=== PATIENT | male | born 1955 | race Caucasian/White ===

== ENCOUNTER 2017-10-22 02:54 | Emergency (ER) | payer OTHER | END 2017-10-22 03:32 | disposition home or self-care (01) | LOC: D.ER 02:54 | DX: S05.01XA Injury of conjunctiva and corneal abrasion without foreign body, right eye, initial encounter (principal); X58.XXXA Exposure to other specified factors, initial encounter; Y93.89 Activity, other specified; Y92.029 Unspecified place in mobile home as the place of occurrence of the external cause; I10 Essential (primary) hypertension ==

== ENCOUNTER 2018-03-20 22:19 | Emergency (ER) | payer OTHER ==
[2018-03-20 23:18] LABS: BASOPHILS 0.1 % (0-2); HEMATOCRIT 39.6 % (42.0-54.0); HEMOGLOBIN 14.5 g/dL (13.5-17.5); IMMATURE GRANULOCYTES 0.6 % (0-5); LYMPHOCYTES 32.8 % (15-50); MCH 33.2 pg (26.0-34.0); MCHC 36.6 g/dL (31.0-37.0); MCV 90.6 fL (80.0-100.0); MEAN PLATELET VOLUME 8.2 fL (7.4-10.4); NEUTROPHILS 55.5 % (40-80); PLATELET COUNT 282 10x3/uL (130-400); RBC 4.37 10x6/uL (4.20-6.10); RDW 12.6 % (11.5-14.5); WBC 8.5 10x3/uL (4.8-10.8)
[2018-03-20 23:56] LABS: ALBUMIN 3.8 g/dL (3.4-5.0); ALKALINE PHOSPHATASE 81 U/L (46-116); ALT (SGPT) 107 U/L (10-68); BILIRUBIN - TOTAL 0.29 mg/dL (0.2-1.3); CALC OSMOLALITY 246 mosm/kg (275-300); CALCIUM 8.5 mg/dL (8.5-10.1); CARBON DIOXIDE 28.3 mmol/L (21.0-32.0); CKMB 6.7 U/L (0.0-3.6); CREATINE KINASE 204 UL (21-232); GLUCOSE 90 mg/dL (74-106); POTASSIUM - SERUM 3.6 mmol/L (3.5-5.1); PROTEIN - SERUM 8.6 g/dL (6.4-8.2); SODIUM 123 mmol/L (136-145); UREA NITROGEN 10 mg/dL (7-18); eGFR NON AFRICAN AMERICAN 81 mL/min (90-120)
[2018-03-21 00:02] LABS: LIPASE 129 U/L (73-393); PRO BNP 40 pg/mL (0-125)
[2018-03-21 00:04] LABS: CHLORIDE - SERUM 85 mmol/L (98-107); TROPONIN-I < 0.017 ng/mL (0.000-0.060)
== END 2018-03-21 00:30 | disposition home or self-care (01) ==
LOC: D.ER 22:19
PROVIDERS: Family Medicine
DX: R07.89 Other chest pain (principal); I10 Essential (primary) hypertension

== ENCOUNTER 2020-05-25 20:02 | Emergency (ER) | payer OTHER ==
[~2020-05-25] VITALS: Ht 180.3 cm; Wt 77.1 kg
[2020-05-25 20:19] VITALS: Ht 180.3 cm; Wt 77.1 kg
[2020-05-25] MEDS ORDERED: REQUIP3 MG PO (20:20)
[2020-05-25] MEDS ORDERED: LISINOPRIL40 MG PO (20:20)
[2020-05-25] MEDS ORDERED: ANORO ELLIPTA1 EACH INH (20:21)
[2020-05-25] MEDS ORDERED: PROAIR HFA8.5 G1 INH (20:21)
[2020-05-25 20:34] LABS: BASOPHILS 0.6 % (0-2); EOSINOPHILS 15.8 % (0-7); HEMATOCRIT 43.8 % (42.0-54.0); HEMOGLOBIN 14.8 g/dL (13.5-17.5); IMMATURE GRANULOCYTES 2.8 % (0-5); MCHC 33.8 g/dL (31.0-37.0); MCV 91.6 fL (80.0-100.0); MEAN PLATELET VOLUME 8.6 fL (7.4-10.4); MONOCYTES 13.2 % (2-11); NEUTROPHILS 39.6 % (40-80); RBC 4.78 10x6/uL (4.20-6.10); RDW 12.5 % (11.5-14.5); WBC 5.4 10x3/uL (4.8-10.8)
[2020-05-25 20:35] LABS: PLATELET COUNT 221 10x3/uL (130-400)
[2020-05-25 20:45] LABS: CALC OSMOLALITY 249 mosm/kg (275-300); CALCIUM 9.2 mg/dL (8.5-10.1); CHLORIDE - SERUM 94 mmol/L (98-107); CREATININE - SERUM 0.8 mg/dL (0.6-1.3); GLUCOSE 92 mg/dL (74-106); POTASSIUM - SERUM 4.3 mmol/L (3.5-5.1); SODIUM 125 mmol/L (136-145); UREA NITROGEN 6 mg/dL (7-18); eGFR NON AFRICAN AMERICAN > 90 mL/min (90-120)
[2020-05-25 20:53] LABS: ALBUMIN 3.8 g/dL (3.4-5.0); ALKALINE PHOSPHATASE 66 U/L (30-120); ALT (SGPT) 83 U/L (10-68); AMYLASE - SERUM 183 U/L (25-115); BILIRUBIN - TOTAL 0.46 mg/dL (0.2-1.3); LIPASE 127 U/L (73-393); TROPONIN-I < 0.017 ng/mL (0.000-0.060)
[2020-05-25 21:04] LABS: BILIRUBIN NEGATIVE (NEGATIVE); GLUCOSE NEGATIVE (NEGATIVE); KETONE NEGATIVE (NEGATIVE); NITRITE NEGATIVE (NEGATIVE); SPECIFIC GRAVITY 1.005 (1.005-1.020); UROBILINOGEN NORMAL (NORMAL)
[2020-05-25 22:59] VITALS: BP 165/107
== END 2020-05-25 23:01 | disposition home or self-care (01) ==
LOC: D.ER 20:02
PROVIDERS: Family Medicine
DX: R10.31 Right lower quadrant pain (principal); R79.89 Other specified abnormal findings of blood chemistry; E87.8 Other disorders of electrolyte and fluid balance, not elsewhere classified; E87.1 Hypo-osmolality and hyponatremia; I10 Essential (primary) hypertension; J44.9 Chronic obstructive pulmonary disease, unspecified